=== PATIENT | male | born 1985 | race Caucasian/White ===

== ENCOUNTER 2018-07-26 09:30 | Emergency (ER) | payer MEDICAID ==
[~2018-07-26] VITALS: Ht 165.1 cm; Wt 86.6 kg
[2018-07-26 09:36] VITALS: Ht 165.1 cm; Wt 86.6 kg
[2018-07-26 11:12] VITALS: BP 126/78
== END 2018-07-26 11:12 | disposition home or self-care (01) ==
LOC: ED 09:30
DX: R07.89 Other chest pain (principal); K04.7 Periapical abscess without sinus